=== PATIENT | female | born 1965 | race Two or more races ===

== ENCOUNTER 2021-10-11 23:42 | Emergency (ER) | payer OTHER ==
[2021-10-12] MEDS ORDERED: Sodium Chloride 0.9% 10 ML Syringe FLUSH PRN (00:53)
[2021-10-12] MEDS ORDERED: Prochlorperazine 10 MG/2 ML SDV IVPUSH ONE (00:54)
[2021-10-12] MEDS ORDERED: Ketorolac 30 MG/ML SDV IVPUSH ONE (00:54)
[2021-10-12] MEDS ORDERED: Potassium Chloride 20 MEQ Tab.ER PO ONE (01:49)
== END 2021-10-12 02:30 | disposition home or self-care (01) ==
LOC: JP.ED 23:42
DX: G43.909 Migraine, unspecified, not intractable, without status migrainosus (principal); Z91.030 Bee allergy status; Z79.899 Other long term (current) drug therapy
CPT/HCPCS: 36415; 70450; 80053; 84443; 85025; 96374; 96375; 99282; 99284; A9270; J0780; J1885